=== PATIENT | male | born 1935 | race Caucasian/White ===

== ENCOUNTER 2016-05-19 08:55 | Outpatient (CLI) | payer MEDICARE, OTHER | END 2016-05-19 08:56 | disposition home or self-care (01) | DX: E11.40 Type 2 diabetes mellitus with diabetic neuropathy, unspecified (principal); E53.8 Deficiency of other specified B group vitamins ==

== ENCOUNTER 2016-07-20 09:45 | Outpatient (CLI) | payer MEDICARE, OTHER | END 2016-07-20 09:46 | disposition home or self-care (01) | DX: E11.9 Type 2 diabetes mellitus without complications (principal) ==

== ENCOUNTER 2016-11-14 10:16 | Outpatient (CLI) | payer MEDICARE, OTHER ==
[2016-11-14 15:57] LABS: ALBUMIN/GLOBULIN RATIO 1.5 (1.0-2.2); BILIRUBIN,TOTAL 0.6 mg/dL (0.2-1.0); CALCIUM 9.3 mg/dL (8.5-10.3); CREATININE 1.1 mg/dL (0.6-1.2); POTASSIUM 4.3 mmol/L (3.5-5.0); TOTAL PROTEIN 7.2 g/dL (6.7-8.2)
[2016-11-14 16:35] LABS: HEMOGLOBIN A1C 0.85 g/dL
== END 2016-11-14 10:17 | disposition home or self-care (01) ==
LOC: LAB.WCP 10:16
PROVIDERS: ATTEND Family Medicine
DX: N40.0 Benign prostatic hyperplasia without lower urinary tract symptoms (principal)
CPT/HCPCS: 36415; 80053; 83036

== ENCOUNTER 2018-11-07 16:55 | Emergency (ER) | payer MEDICARE, OTHER ==
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
[2018-11-07] MEDS ORDERED: TETANUS/DIPHTHERIA/PERTUSSIS 0.5 ML SYRINGE IM ONE (17:30)
--- NOTE | 2018-11-07 17:31 | CT Report ---
Reason: fall, head injury, occiput Procedure Date: 11/07/2018 Accession Number: [id number] / [id number] Procedure: CT - HEAD WO CPT Code: FULL RESULT: EXAM: CT HEAD EXAM DATE: 11/07/2018 05:16 PM. CLINICAL HISTORY: Fall, pain. COMPARISON: None. TECHNIQUE: Multiaxial CT images were obtained from the foramen magnum to the vertex. Reformats: Sagittal and coronal. IV contrast: None. In accordance with CT protocol optimization, one or more of the following dose reduction techniques were utilized for this exam: automated exposure control, adjustment of mA and/or KV based on patient size, or use of iterative reconstructive technique. FINDINGS: Parenchyma: No intraparenchymal hemorrhage. No evidence of mass, midline shift, or CT findings of acute infarction. Lucas-white differentiation is distinct. Diffuse chronic microangiopathic white matter changes. Extraaxial Spaces: Normal for age. No subdural or epidural collections. Ventricles: The ventricles and cortical sulci are enlarged, consistent with age-related tissue loss. Sinuses and orbits: Imaged paranasal sinuses, orbits, and mastoids show no significant abnormality. Bones: Unremarkable. Other: Superficial soft tissue swelling over right occipital region. IMPRESSION: 1. Soft tissue swelling. 2. Generalized age-related cortical atrophic changes without evidence of acute intracranial abnormality. [facility]
[2018-11-07 17:56] VITALS: BP 169/89
== END 2018-11-07 18:11 | disposition home or self-care (01) ==
LOC: EDUNIT# → ED 16:55
DX: S00.03XA Contusion of scalp, initial encounter (principal); S09.90XA Unspecified injury of head, initial encounter; V00.891A Fall from other pedestrian conveyance, initial encounter; Y92.480 Sidewalk as the place of occurrence of the external cause; Z23 Encounter for immunization; I10 Essential (primary) hypertension; E11.9 Type 2 diabetes mellitus without complications; Z79.4 Long term (current) use of insulin; Z79.82 Long term (current) use of aspirin; F17.200 Nicotine dependence, unspecified, uncomplicated
CPT/HCPCS: 70450; 90471; 99283